=== PATIENT | female | born 1960 | race Caucasian/White ===

== ENCOUNTER 2022-05-01 17:37 | Emergency (ER) | payer BC ==
[~2022-05-01] VITALS: Ht 157.5 cm; Wt 56.7 kg
[2022-05-01 17:45] VITALS: BP_SYST 102
--- NOTE | 2022-05-01 18:12 | NUR ---
Dr. Ramos with patient for evaluation.
[2022-05-01] MEDS ORDERED: VANCOMYCIN HCL 1,000 MG in NS 250 ML IV ONE (18:30)
--- NOTE | 2022-05-01 19:20 | NUR ---
Patient to bed 8 for evaluation and treatment.
[2022-05-01] MEDS ORDERED: VANCOMYCIN HCL 1000 MG/VIAL IV ONE (19:41)
--- NOTE | 2022-05-01 20:00 | NUR ---
PT CAME FROM HOME WITH C/O OF CAT SCRATCH TO THE LEFT HAND, PAIN, REDDNESS AND SWELLING TO THE LEFT HAND. HAND IS SEVERLY SWOLLEN, EYRTHEMA NOTES, AND WARMTH. PT STATES SHE IS NOT HAVING PAIN AT THE MOMENT.
[2022-05-01 22:00] VITALS: BP_SYST 102
--- NOTE | 2022-05-01 22:00 | NUR ---
Patient given written and verbal discharge instructions and verbalizes understanding. ER Dr. Ramos discussed with patient the results and treatment provided. Patient in stable condition. ID arm band removed. IV catheter removed intact and dressing applied, no active bleeding. Patient educated on pain management and to follow up with PMD. Pain Scale 0. Opportunity for questions provided and answered. Medication side effect fact sheet provided.
== END 2022-05-01 22:00 | disposition home or self-care (01) ==
LOC: SED 17:37
DX: L03.114 Cellulitis of left upper limb (principal); R22.32 Localized swelling, mass and lump, left upper limb; Z88.6 Allergy status to analgesic agent; Z79.899 Other long term (current) drug therapy
CPT/HCPCS: 99284; 96365; 96366; 87040; 36415; 73090; 73130; J3370; J7050

== ENCOUNTER 2022-05-02 17:39 | Emergency (ER) | payer BC ==
[~2022-05-02] VITALS: Ht 160 cm; Wt 63.5 kg
[2022-05-02 17:53] VITALS: BP_SYST 105
--- NOTE | 2022-05-02 19:30 | NUR ---
Patient ambulatory to bed 1 for evaluation and treatment
--- NOTE | 2022-05-02 19:41 | NUR ---
ER at bedside examining patient.
[2022-05-02] MEDS ORDERED: VANCOMYCIN HCL 1,000 MG in NS 250 ML IV ONE (20:00)
--- NOTE | 2022-05-02 20:04 | NUR ---
PRESENTS TO THE ER C/O LEFT HAND CELLULITIS SINCE 5 DAYS AGO. REPORTS BEING SCRATCHED BY A CAT. DENIES FEVERS/CHILLS. REPORTS THAT SHE RECEIVED ABX VIA PO AND IV WITH NO RELIEF. DENIES PAIN/DISCOMFORT. WILL CONTINUE TO MONITOR.
[2022-05-02] MEDS ORDERED: VANCOMYCIN HCL 1000 MG/VIAL IV ONE (20:28)
[2022-05-02 23:11] VITALS: BP_SYST 132
--- NOTE | 2022-05-02 23:12 | NUR ---
IV Vanco finished and d/c, IV d/c and pressure applied. Pt states d/c education understood, will continue taking PO antibiotics.
== END 2022-05-02 23:10 | disposition home or self-care (01) ==
LOC: SED 17:39
DX: L03.114 Cellulitis of left upper limb (principal); R22.32 Localized swelling, mass and lump, left upper limb; Z88.6 Allergy status to analgesic agent; Z79.899 Other long term (current) drug therapy
CPT/HCPCS: 99284; 96365; 96366; J3370

== ENCOUNTER 2022-09-22 12:40 | Inpatient (IN) | payer BC ==
[~2022-09-22] VITALS: Ht 157.5 cm; Wt 56.2 kg
[2022-09-22 13:12] VITALS: BP_SYST 112
--- NOTE | 2022-09-22 13:23 | NUR ---
Patient to ER bed 6 to gown for evaluation. Side rails up. Report given to ALANNAH ROTHMAN.
--- NOTE | 2022-09-22 14:00 | NUR ---
PT BIB AWAKE AND ALERT, AOX4. PT WAS AT HER PCP AND WAS AVISED TO GO TO ER DUE TO 89% O2SAT ON RA. PT DENIES PAIN AND N/V.
--- NOTE | 2022-09-22 14:00 | NUR ---
PT PLACED ON NC AT 2LPM
--- NOTE | 2022-09-22 14:10 | NUR ---
MD DR ALEGRIA AT BEDSIDE
[2022-09-22] MEDS ORDERED: IPRATROPIUM BROM 0.5 MG/2.5 ML VIAL.NEB (ATROVENT) INH ONE (14:30)
[2022-09-22] MEDS ORDERED: ALBUTEROL SULFATE 0.083% 2.5 MG/3 ML VIAL.NEB INH ONE (14:30)
[2022-09-22 14:53] LABS: BASOPHILS % (AUTO) 0.2 % (0.0-2.0); EOSINOPHILS % (AUTO) 0.2 % (0.0-4.0); HEMOGLOBIN 12.1 g/dL (12.0-16.0); LYMPHOCYTES # (AUTO) 1.3 K/uL (1.0-5.5); LYMPHOCYTES % (AUTO) 12.1 % (20.5-51.5); MEAN CORPUSCULAR HEMOGLOBIN 29 pg (27-31); MEAN CORPUSCULAR HGB CONC 33 % (32-36); MEAN CORPUSCULAR VOLUME 88 fL (79.0-98.0); MONOCYTES # (AUTO) 0.4 K/uL (0.0-1.0); MONOCYTES % (AUTO) 4.1 % (1.7-9.3); NEUTROPHILS % (AUTO) 83.4 % (40.0-70.0); PLATELET COUNT (AUTO) 288 K/uL (130-430); RED BLOOD CELL COUNT(AUTO) 4.19 MIL/uL (4.2-6.2); WHITE BLOOD COUNT (AUTO) 10.7 K/uL (4.8-10.8)
[2022-09-22 15:05] LABS: ANION GAP 8 (5-15); CALCIUM 9.8 mg/dL (8.4-11.0); CHLORIDE 101 mmol/L (98-107); CREATININE 0.54 mg/dL (0.55-1.30); GLUCOSE 92 mg/dL (70-99); UREA NITROGEN, BLOOD 16 mg/dL (8-21)
[2022-09-22 15:06] LABS: GFR AFRICAN AMERICAN 148 mL/min (>90)
[2022-09-22 15:11] LABS: ALANINE AMINOTRANSFERASE 20 U/L (12-78); ALBUMIN 3.2 g/dL (3.4-4.8); ASPARTATE AMINOTRANSFERASE 21 U/L (10-37); TOTAL BILIRUBIN 0.5 mg/dL (0.0-1.0)
--- NOTE | 2022-09-22 16:37 | NUR ---
Admit bed requested Patient will be admitted to care of . Admitted to TELEMETRY unit. Diagnosis RESPIRATORY FAILURE, PNEUMONIA Inpatient (Yes or No) YES Observation (Yes or No) NO Orientation concerns or request close to nursing station (Yes or No) NO Covid Status NEGATIVE On vent or bipap NO Isolation requirements NONE Needs a sitter NO From Home (Yes or if No enter name of facility) HOME Requires Dialysis (Yes or No) NO Med Rec Completed (Yes of No) YES
[2022-09-22 18:10] VITALS: BP_SYST 126
--- NOTE | 2022-09-22 18:42 | NUR ---
Patient arrived on unit alert and oriented. Vitals stable. Patient on 2L NC and presenting with a cough. Admission questions gone over with patient.
--- NOTE | 2022-09-22 19:30 | NUR ---
pt is alert and oriented x 4 came as a new admission for PNA. Pt wish that she could go home, she is cooperative and follow command. non productive coughing is noted. pt is on nasal canula 2 l and can ambulate
[2022-09-22 20:00] VITALS: BP_SYST 100
--- NOTE | 2022-09-22 20:02 | NUR ---
CONSULTATION CALLED FOR DR. Loulou LOGAN FOR CONSULT OF RESPIRATORY FAILURE PNEUMONIA ORDER BY DR. Robert MADISON SPOKE WITH LEWIS
--- NOTE | 2022-09-22 20:10 | NUR ---
CONSULTATION CALLED FOR DR. GLEN PEACE FOR CONSULT OF RESPIRATORY FAILURE PNEUMONIA ORDER BY DR. Robert MADISON SPOKE WITH CHRISTIANO
--- NOTE | 2022-09-22 20:40 | NUR ---
Dr douglass called asking if the patient had antibiotic and he said will put some new order later.
--- NOTE | 2022-09-22 21:10 | NUR ---
pt is asking when she will her antibiotic. Pt will be notified once put the order in.
[2022-09-23] VITALS (7 sets, daily range): BP systolic 85–117
--- NOTE | 2022-09-23 03:00 | NUR ---
DR douglass came and asked if he can talk to the patient.
--- NOTE | 2022-09-23 04:45 | NUR ---
pt is asking for napkins and it was provided to the patient
[2022-09-23] MEDS ORDERED: PIPERACILLIN/TAZOBACTAM 3.375 GM/VIAL (ZOSYN) IV ONE (06:50)
[2022-09-23] MEDS: PIPERACILLIN/TAZO 3.375/DEX-IS 50 ML IV SCH ×4 (07:10→23:45)
--- NOTE | 2022-09-23 07:30 | NUR ---
OPENING NOTES ALERT AND ORIENTED, EATING BREAKFAST. DENIES ANY SHORTNESS OF BREATH ON 4 LITERS OF O2 VIA NASAL CANNULA. DENIES ANY PAIN. IV INTACT. SAFETY CHECKS DONE. CALL LIGHT WITHIN REACH.
[2022-09-23] MEDS: FLUTICASONE PROPIONATE 50 mCg/SPRAY 16 GM NS SCH ×2 (09:49→21:03)
[2022-09-23] MEDS: OXYMETAZOLINE HCL 0.05% NASAL SPRAY NS SCH ×2 (09:50→21:05)
--- NOTE | 2022-09-23 09:50 | NUR ---
MEDS NASAL SPRAYS GIVEN. EDUCATED ON EACH NASAL SPRAY, VERBALIZED UNDERSTANDING. SAFETY CHECKS DONE. CALL LIGHT AND THINGS NEEDED WITHIN REACH.
[2022-09-23] MEDS ORDERED: LORazepam 2 MG/ML VIAL IVP PRN (11:45)
[2022-09-23] MEDS ORDERED: ONDANSETRON HCL 4 MG/2 ML VIAL IVP PRN (11:45)
[2022-09-23] MEDS ORDERED: ACETAMINOPHEN 325 MG TABLET PO PRN ×2 (11:45→12:00)
--- NOTE | 2022-09-23 12:45 | NUR ---
IV ANTIBIOTIC ADMINISTERED. NEEDS ATTENDED.
[2022-09-23] MEDS ORDERED: NORMAL SALINE 5 ML DISP.SYRIN IVF SCH (14:00)
[2022-09-23] MEDS: NORMAL SALINE 5 ML DISP.SYRIN IVF SCH ×2 (14:23→21:06)
--- NOTE | 2022-09-23 14:26 | NUR ---
ROUNDS IV FLUSHED. NEEDS ATTENDED.
[2022-09-23] MEDS ORDERED: NACL 0.9% 1,000 ML IV ONE (15:30)
--- NOTE | 2022-09-23 15:30 | NUR ---
1 L BOLUS TEXTILE CONSERVATOR REPORTED BLOOD PRESSURE OF 87/57. PATIENT REPORTED FEELING NAUSEOUS BUT DENIES ANY DIZZINESS. REPORTED TO DR. ARRINGTON. ORDERS RECEIVED TO GIVE 1 LITER IV BOLUS. STARTED. WILL CLOSELY MONITOR.
--- NOTE | 2022-09-23 16:30 | NUR ---
BP RE-CHECK 102/65MMHG. DENIES ANY NAUSEA OR DIZZINESS.
[2022-09-23] MEDS: IPRATROPIUM BROM 0.5 MG/2.5 ML VIAL.NEB (ATROVENT) INH PRN (16:39)
[2022-09-23] MEDS: ALBUTEROL SULFATE 0.083% 2.5 MG/3 ML VIAL.NEB INH PRN (16:39)
--- NOTE | 2022-09-23 18:48 | NUR ---
CLOSING NOTES RESTING. ALL NEEDS MET THROUGHOUT SHIFT. IV ANTIBIOTIC INFUSING WELL. SAFETY CHECKS DONE. CALL LIGHT AND THINGS NEEDED WITHIN REACH.
[2022-09-24 00:15] VITALS: BP_SYST 101
--- NOTE | 2022-09-24 00:55 | NUR ---
NOTES STARTED SHIFT AT 1900, PTS BP WAS LOW AT 86/56 . SO HAD TO TAKE IT AGAIN AT 1999 WAS 117/75.PT WAS GIVEN HER MEDICATIONS AND WAS RESTING. CALL LIGHT WAS PLACED WITHIN HER REACH REACH.
--- NOTE | 2022-09-24 02:22 | NUR ---
AT 0200 ROUNDS WERE DONE . HELPED REPOSITIONED PT AND CALL LIGHT WITHIN HER REACH .
[2022-09-24] MEDS: NORMAL SALINE 5 ML DISP.SYRIN IVF SCH ×3 (05:51→19:49)
[2022-09-24] MEDS: PIPERACILLIN/TAZO 3.375/DEX-IS 50 ML IV SCH ×4 (05:51→23:44)
--- NOTE | 2022-09-24 06:21 | NUR ---
CLOSING NOTES PT SLEPT THROUGH THE NIGHT AND CALL LIGHT WAS WITHIN HER REACH.
[2022-09-24 06:28] LABS: BASOPHILS % (AUTO) 0.5 % (0.0-2.0); EOSINOPHILS # (AUTO) 0.1 K/uL (0.0-0.4); EOSINOPHILS % (AUTO) 1.5 % (0.0-4.0); HEMATOCRIT 31.9 % (36-48); HEMOGLOBIN 10.6 g/dL (12.0-16.0); LYMPHOCYTES # (AUTO) 1.4 K/uL (1.0-5.5); LYMPHOCYTES % (AUTO) 27.6 % (20.5-51.5); MEAN CORPUSCULAR HEMOGLOBIN 29 pg (27-31); MEAN CORPUSCULAR HGB CONC 33 % (32-36); MEAN CORPUSCULAR VOLUME 88 fL (79.0-98.0); MONOCYTES # (AUTO) 0.3 K/uL (0.0-1.0); MONOCYTES % (AUTO) 6.2 % (1.7-9.3); NEUTROPHILS # (AUTO) 3.4 K/uL (1.8-7.7); NEUTROPHILS % (AUTO) 64.2 % (40.0-70.0); PLATELET COUNT (AUTO) 267 K/uL (130-430); RED BLOOD CELL COUNT(AUTO) 3.62 MIL/uL (4.2-6.2); RED CELL DISTRIBUTION WIDTH 14.7 % (9.0-15.0); WHITE BLOOD COUNT (AUTO) 5.2 K/uL (4.8-10.8)
[2022-09-24 07:00] LABS: ALBUMIN 2.6 g/dL (3.4-4.8); C-REACTIVE PROTEIN QUANT 4.6 mg/dL (0-0.5); CALCIUM 9.2 mg/dL (8.4-11.0); CREATININE 0.72 mg/dL (0.55-1.30); TOTAL BILIRUBIN 0.3 mg/dL (0.0-1.0)
[2022-09-24 08:00] VITALS: BP_SYST 100
--- NOTE | 2022-09-24 08:00 | NUR ---
RECEIVED IN BED ASLEEP EASY TO AROUSE ASSESSMENT COMPLETED PLAN OF CARE REVIEWED DENIES PAIN AT THIS TIME BREATHING NON LABORED SOB WITH SOME ACTIVITY OXYGEN VIA NC IN PLACE CALL LIGHT IN REACH WILL CONTINUE TO MONITOR AND ASSESS
[2022-09-24] MEDS: OXYMETAZOLINE HCL 0.05% NASAL SPRAY NS SCH ×2 (08:55→21:00)
[2022-09-24] MEDS: FLUTICASONE PROPIONATE 50 mCg/SPRAY 16 GM NS SCH ×2 (08:55→21:00)
[2022-09-24] MEDS: BUDESONIDE 0.5 MG/2 ML AMPUL.NEB INH SCH ×2 (09:13→19:41)
[2022-09-24 11:41] VITALS: BP_SYST 103
[2022-09-24 12:05] LABS: ERYTHROCYTE SEDIMENTATION RATE 44 MM/HR (0-20)
[2022-09-24 16:28] VITALS: BP_SYST 102
[2022-09-24 20:00] VITALS: BP_SYST 96
--- NOTE | 2022-09-24 21:57 | NUR ---
Patient in bed. No acute distress noted. Compliant with all medications. No complaint of pain or discomfort. Will continue to monitor.
[2022-09-25] VITALS: BP_SYST 98
[2022-09-25] MEDS: NORMAL SALINE 5 ML DISP.SYRIN IVF SCH ×3 (04:35→20:11)
[2022-09-25] MEDS: PIPERACILLIN/TAZO 3.375/DEX-IS 50 ML IV SCH (04:35)
[2022-09-25 08:02] VITALS: BP_SYST 82; BP_SYST 84
[2022-09-25] MEDS: BUDESONIDE 0.5 MG/2 ML AMPUL.NEB INH SCH ×2 (09:00→19:44)
[2022-09-25 09:37] VITALS: BP_SYST 90
[2022-09-25] MEDS: OXYMETAZOLINE HCL 0.05% NASAL SPRAY NS SCH ×2 (09:41→20:11)
[2022-09-25] MEDS: FLUTICASONE PROPIONATE 50 mCg/SPRAY 16 GM NS SCH ×2 (09:42→20:11)
[2022-09-25] MEDS ORDERED: NACL 0.9% 1,000 ML IV ONE (09:45)
[2022-09-25 11:23] VITALS: BP_SYST 99
[2022-09-25] MEDS: METHYLPREDNISOLONE SOD SUCC 40 MG/ML VIAL IVP SCH ×2 (13:27→20:10)
[2022-09-25] MEDS: PIPERACILLIN/TAZO 4.5GM/DEX-IS 100 ML IV SCH ×2 (13:29→20:09)
[2022-09-25 15:52] VITALS: BP_SYST 101
[2022-09-25 20:00] VITALS: BP_SYST 116
--- NOTE | 2022-09-25 21:49 | NUR ---
Patient in bed. No acute distress noted. Ambulates to the bathroom with a slow steady gait. Will continue to monitor.
[2022-09-26] VITALS: BP_SYST 112
[2022-09-26] MEDS: NORMAL SALINE 5 ML DISP.SYRIN IVF SCH ×3 (05:16→21:22)
[2022-09-26] MEDS: METHYLPREDNISOLONE SOD SUCC 40 MG/ML VIAL IVP SCH ×3 (05:16→21:22)
[2022-09-26] MEDS: PIPERACILLIN/TAZO 4.5GM/DEX-IS 100 ML IV SCH ×3 (05:16→21:22)
[2022-09-26 06:12] LABS: BASOPHILS % (AUTO) 0.1 % (0.0-2.0); HEMATOCRIT 33.1 % (36-48); LYMPHOCYTES # (AUTO) 0.7 K/uL (1.0-5.5); LYMPHOCYTES % (AUTO) 12.4 % (20.5-51.5); MEAN CORPUSCULAR HEMOGLOBIN 29 pg (27-31); MEAN CORPUSCULAR HGB CONC 33 % (32-36); MEAN CORPUSCULAR VOLUME 88 fL (79.0-98.0); MONOCYTES # (AUTO) 0.1 K/uL (0.0-1.0); MONOCYTES % (AUTO) 1.7 % (1.7-9.3); NEUTROPHILS # (AUTO) 4.7 K/uL (1.8-7.7); NEUTROPHILS % (AUTO) 85.8 % (40.0-70.0); PLATELET COUNT (AUTO) 284 K/uL (130-430); RED BLOOD CELL COUNT(AUTO) 3.78 MIL/uL (4.2-6.2); RED CELL DISTRIBUTION WIDTH 14.5 % (9.0-15.0); WHITE BLOOD COUNT (AUTO) 5.5 K/uL (4.8-10.8)
[2022-09-26 06:14] LABS: CALCIUM 9.4 mg/dL (8.4-11.0); CREATININE 0.56 mg/dL (0.55-1.30)
[2022-09-26] MEDS: BUDESONIDE 0.5 MG/2 ML AMPUL.NEB INH SCH ×2 (07:46→20:08)
[2022-09-26 08:10] VITALS: BP_SYST 126
[2022-09-26] MEDS: FLUTICASONE PROPIONATE 50 mCg/SPRAY 16 GM NS SCH ×2 (09:23→21:21)
[2022-09-26] MEDS: OXYMETAZOLINE HCL 0.05% NASAL SPRAY NS SCH ×2 (09:23→21:21)
[2022-09-26 11:24] VITALS: BP_SYST 121
[2022-09-26 15:41] VITALS: BP_SYST 128
--- NOTE | 2022-09-26 17:25 | NUR ---
Pt's sat at rest was 95%, while ambulating the halls it maintained at 95%. She does report SOB but did not experience any coughing.
--- NOTE | 2022-09-26 18:16 | NUR ---
I followed up with lab about the sputum culture I sent today as a replacement for the specimen that was reported to have been saliva. It shows as resulted from 09/24/22 but not stated not an adequate sample. The research laboratory manager requested to place a new order and they will correct what is showing as resulted.
[2022-09-26 19:00] VITALS: BP_SYST 136
--- NOTE | 2022-09-26 19:15 | NUR ---
change of shift.pt.presents quiescent affect;calm,resting.pt.presents iv access intact location rt.forearm.iv lock status. pt.capable reposition self/ambulate un-assisted.general status stable.respiratory status stable un-labored@room air.call light/telephone w/in access of the pt.
[2022-09-26 20:00] VITALS: BP_SYST 136
--- NOTE | 2022-09-26 20:00 | NUR ---
pt.assessed.v/s assessed values wnl.note o2-sat%=94%@room air.pt.presents congestion;chest.pt.receiving the administration inh treatments:q-4hrs;prn.no c/o pain,nausea.pt.apprised that snacks/beverages are available w/in the shift.no requests posited @this hour.pt.capable to reposition self.call light/telephone w/in access of the pt.
--- NOTE | 2022-09-26 21:00 | NUR ---
2100p medications solumedrol/abx;zosyn administered.no c/o pain,nausea.call light/telephone w/in access of the pt.
--- NOTE | 2022-09-26 22:00 | NUR ---
pt.assessed.o2-sat%=94%.no c/o pain,nausea.no requests posited@this hour.pt.resting viewing programming via computer. call light/telephone w/in access of the pt.
[2022-09-27] VITALS: BP_SYST 132
--- NOTE | 2022-09-27 | NUR ---
pt.assessed.v/s assessed values wnl.note 02-sat%=94%.no c/o pain,nausea.no requests posited@this hour.pt.capable to reposition self.call light/telephone w/in access of the pt.
--- NOTE | 2022-09-27 02:00 | NUR ---
pt.assessed.pt.quiescent;somnolent.per flacc pain mgx pt.absent facial grimaces/body posturing.pt.capable to reposition self.call light/telephone w/in access of the pt.
--- NOTE | 2022-09-27 04:00 | NUR ---
pt.assessed.pt.quiescent;somnolent.per flacc pain mgx pt.absent facial grimaces/body posturing.pt.capable to reposition self. o2-sat%=94%.call light/telephone w/in access of the pt.
[2022-09-27] MEDS: NORMAL SALINE 5 ML DISP.SYRIN IVF SCH ×3 (05:37→20:42)
[2022-09-27] MEDS: PIPERACILLIN/TAZO 4.5GM/DEX-IS 100 ML IV SCH ×3 (05:37→20:42)
[2022-09-27] MEDS: METHYLPREDNISOLONE SOD SUCC 40 MG/ML VIAL IVP SCH ×3 (05:37→20:40)
--- NOTE | 2022-09-27 06:00 | NUR ---
pt.assessed.no c/o pain,nausea.no requests posited@this hour.zosyn abx ivpb,solumedrol ivp administered.i have attended to suction set-up demostration provided to pt.call light/telephone w/in access of the pt.
[2022-09-27] MEDS: BUDESONIDE 0.5 MG/2 ML AMPUL.NEB INH SCH ×2 (09:43→20:24)
[2022-09-27] MEDS: IPRATROPIUM BROM 0.5 MG/2.5 ML VIAL.NEB (ATROVENT) INH PRN (09:43)
[2022-09-27] MEDS: ALBUTEROL SULFATE 0.083% 2.5 MG/3 ML VIAL.NEB INH PRN (09:43)
[2022-09-27 11:24] VITALS: BP_SYST 120
[2022-09-27] MEDS: OXYMETAZOLINE HCL 0.05% NASAL SPRAY NS SCH ×2 (12:43→20:42)
[2022-09-27] MEDS: FLUTICASONE PROPIONATE 50 mCg/SPRAY 16 GM NS SCH ×2 (12:48→20:40)
[2022-09-27] MEDS ORDERED: SILVER SULFADIAZINE 1%, 25 GM TOPICAL CREAM (SSD) TP ONE (13:00)
[2022-09-27 15:29] VITALS: BP_SYST 119
[2022-09-27] MEDS: ACETYLCYSTEINE 20% 4 ML VIAL (RT) INH SCH ×2 (15:46→20:09)
--- NOTE | 2022-09-27 18:13 | NUR ---
Dietitian Recommendations * Continue Regular Diet, per patient * Consider MVI, B12, Fe, VIT C supplements Please refer to nutrition assessment for details, thanks! Paulina Iraheta MPH, RDN
[2022-09-27] MEDS: IPRATROPIUM BROM 0.5 MG/2.5 ML VIAL.NEB (ATROVENT) INH SCH (19:51)
[2022-09-27] MEDS: ALBUTEROL SULFATE 0.083% 2.5 MG/3 ML VIAL.NEB INH SCH (19:51)
[2022-09-27 20:30] VITALS: BP_SYST 118
[2022-09-27] MEDS: SILVER SULFADIAZINE 1%, 25 GM TOPICAL CREAM (SSD) TP SCH (20:41)
--- NOTE | 2022-09-27 22:49 | NUR ---
Patient awake alert HOB elevated on nebulizer Tx Respirations Remain Regular also unlabored call shields given to patient / .
[2022-09-28 01:00] VITALS: BP_SYST 129
--- NOTE | 2022-09-28 02:46 | NUR ---
Hourly Rounding patient Resting is verbally Responsive call shields given to patient Respirations Regular also unlabored / .
--- NOTE | 2022-09-28 05:11 | NUR ---
Hourly Rounding patient Resting extra blankets given Respirations Regular & unlabored / .
[2022-09-28] MEDS: NORMAL SALINE 5 ML DISP.SYRIN IVF SCH ×2 (06:07→13:25)
[2022-09-28] MEDS: PIPERACILLIN/TAZO 4.5GM/DEX-IS 100 ML IV SCH ×2 (06:08→13:23)
[2022-09-28] MEDS: ALBUTEROL SULFATE 0.083% 2.5 MG/3 ML VIAL.NEB INH SCH ×3 (07:21→15:00)
[2022-09-28] MEDS: IPRATROPIUM BROM 0.5 MG/2.5 ML VIAL.NEB (ATROVENT) INH SCH ×3 (07:22→15:00)
[2022-09-28] MEDS: ACETYLCYSTEINE 20% 4 ML VIAL (RT) INH SCH ×3 (07:23→15:00)
[2022-09-28 08:07] VITALS: BP_SYST 102
[2022-09-28] MEDS: METHYLPREDNISOLONE SOD SUCC 40 MG/ML VIAL IVP SCH (09:02)
[2022-09-28] MEDS: FLUTICASONE PROPIONATE 50 mCg/SPRAY 16 GM NS SCH (09:03)
[2022-09-28] MEDS: BUDESONIDE 0.5 MG/2 ML AMPUL.NEB INH SCH (09:04)
[2022-09-28] MEDS: OXYMETAZOLINE HCL 0.05% NASAL SPRAY NS SCH (09:04)
[2022-09-28] MEDS: SILVER SULFADIAZINE 1%, 25 GM TOPICAL CREAM (SSD) TP SCH (09:09)
[2022-09-28 11:36] VITALS: BP_SYST 94
[2022-09-28 13:30] VITALS: BP_SYST 106
--- NOTE | 2022-09-28 15:23 | NUR ---
WOUND EVALUATION: Wound Consult received from Dr. Ashley. Thank you, Dr. Ashley, for the consult. Patient received in a Natalie Bed with an Isoflex FREDRICK mattress, awake, alert, and oriented. Patient is unable to turn independently. David Score is a 21. Past Medical History: Arnold-Chiari Malformation, Chronic Bronchitis, throat mass. Recent Labs: WBC 8.5, RBC 3.78, hemoglobin 11.0, hematocrit 33.1, ESR 44, glucose 122, C-reactive protein 4.6, albumin 2.6. Microbiology: Blood culture results x2 negative. Sputum culture x2 counseled secondary to saliva contamination. Intrinsic factors that delay wound healing: Arnold-Chiari Malformation. Extrinsic factors that delay wound healing: Decreased mobility (left-sided weakness with sensory deficit). Wound Assessment: 1. Left Anterior Upper Extremity near Antecubital area: Erythema with several serous fluid-filled blisters. No odor, no drainage. Appears to be a possible IV infiltration site. No odor, no drainage. Mild edema present. Skin is intact. Site measures 5.6 cm x 6.8 cm. Recommend: Rinse with normal saline. Gently pat dry around blisters. Cut Xeroform dressing to size and place over site. Wrap site loosely with Cinthya wrap. Perform site care daily, and as needed for dressing soiling or dislodgment. Elevate extremity above heart as tolerated. Also recommend: Encourage and assist patient as needed with repositioning every 2 hours with pillow support and off-load pressure areas with pillows for pressure re-distribution. Offload, elevate and float bilateral heels with pillows. Perform skin care and monitor skin integrity Q shift.
[2022-09-28] MEDS ORDERED: PRED20TA PO (15:25)
[2022-09-28] MEDS ORDERED: AUG875 PO (15:26)
[2022-09-28 16:02] VITALS: BP_SYST 106
[2022-09-28 16:12] VITALS: BP_SYST 96
--- NOTE | 2022-09-28 16:28 | NUR ---
Discharge papers discussed with patient. IV removed and patient getting dressed to go home. No further questions at this time. Patient informed on where to [facility]. Patient is alert and oriented.
== END 2022-09-28 17:00 | disposition home or self-care (01) | DRG 177 ==
LOC: SED 12:40 → STU 16:32 → SMU 09-23 12:05
PROVIDERS: ADMIT Specialist; ATTEND Specialist
DX: J69.0 Pneumonitis due to inhalation of food and vomit (principal); J96.20 Acute and chronic respiratory failure, unspecified whether with hypoxia or hypercapnia; J42 Unspecified chronic bronchitis; E88.09 Other disorders of plasma-protein metabolism, not elsewhere classified; J32.9 Chronic sinusitis, unspecified; J38.00 Paralysis of vocal cords and larynx, unspecified; E07.9 Disorder of thyroid, unspecified; Z20.822 Contact with and (suspected) exposure to COVID-19; Z88.5 Allergy status to narcotic agent; Z88.8 Allergy status to other drugs, medicaments and biological substances; Z79.899 Other long term (current) drug therapy; Q07.00 Arnold-Chiari syndrome without spina bifida or hydrocephalus
CPT/HCPCS: 36415; 70210-TC; 71045; 71046-TC; 80048; 80053; 83605; 83880; 84484; 85025; 85651-TC; 86140; 87040; 87070-TC; 87205-TC; 93005; 94640; 94760; 99285; G0378; J1030; J1956; J2543; J7608; J7613; J7626

== ENCOUNTER 2023-11-28 11:08 | Emergency (ER) | payer BC ==
[~2023-11-28] VITALS: Ht 157.5 cm; Wt 65.8 kg
[~2023-11-28 11:08] MED LIST: AUG875 PO; PRED20TA PO
[2023-11-28 11:25] VITALS: BP_SYST 138; PULSE 75; RESP 18; TEMP 98.3; O2SAT 96
[2023-11-28 12:18] LABS: BASOPHILS % (AUTO) 0.7 % (0.0-2.0); EOSINOPHILS # (AUTO) 0.1 K/uL (0.0-0.4); EOSINOPHILS % (AUTO) 1.4 % (0.0-4.0); HEMATOCRIT 34.9 % (36-48); HEMOGLOBIN 11.6 g/dL (12.0-16.0); LYMPHOCYTES # (AUTO) 1.1 K/uL (1.0-5.5); MEAN CORPUSCULAR HEMOGLOBIN 28 pg (27-31); MEAN CORPUSCULAR HGB CONC 33 % (32-36); MEAN CORPUSCULAR VOLUME 84 fL (79.0-98.0); MONOCYTES # (AUTO) 0.3 K/uL (0.0-1.0); MONOCYTES % (AUTO) 4.9 % (1.7-9.3); NEUTROPHILS # (AUTO) 3.6 K/uL (1.8-7.7); PLATELET COUNT (AUTO) 239 K/uL (130-430); RED BLOOD CELL COUNT(AUTO) 4.16 MIL/uL (4.2-6.2); RED CELL DISTRIBUTION WIDTH 16.7 % (9.0-15.0); WHITE BLOOD COUNT (AUTO) 5.1 K/uL (4.8-10.8)
[2023-11-28] MEDS: methylPREDNISolone SOD SUCC/PF 62.5 MG/ML VIAL IVP ONE (12:22)
[2023-11-28 12:34] LABS: ANION GAP 7 (5-15); CALCIUM 9.3 mg/dL (8.4-11.0); CARBON DIOXIDE 29 mmol/L (23-29); CHLORIDE 105 mmol/L (98-107); CREATININE 0.72 mg/dL (0.55-1.30); GFR AFRICAN AMERICAN 106 mL/min (>90); GFR NON AFRICAN-AMERICAN 88 mL/min (>90); GLUCOSE 100 mg/dL (74-106); POTASSIUM 3.8 mmol/L (3.5-5.1); SODIUM SERUM 141 mmol/L (136-145); UREA NITROGEN, BLOOD 24 mg/dL (8-21)
[2023-11-28] MEDS ORDERED: AMOX250S64 PO (12:48)
[2023-11-28] MEDS ORDERED: PRED20TA PO (12:48)
[2023-11-28 13:04] VITALS: BP_SYST 138; PULSE 75; RESP 18; TEMP 98.3; O2SAT 96
== END 2023-11-28 13:03 | disposition home or self-care (01) ==
LOC: SED 11:08
DX: J38.01 Paralysis of vocal cords and larynx, unilateral (principal); J20.9 Acute bronchitis, unspecified; Z88.1 Allergy status to other antibiotic agents; Z88.5 Allergy status to narcotic agent; Z79.899 Other long term (current) drug therapy
CPT/HCPCS: 36415; 71045; 80048; 84484; 85025; 93005; 96374; 99285; J2930